=== PATIENT | female | born 1975 | race Caucasian/White ===

== ENCOUNTER 2017-01-07 18:52 | Emergency (ER) | payer OTHER ==
[~2017-01-07] VITALS: Ht 162.6 cm; Wt 94.5 kg
[~2017-01-07 18:52] MED LIST: PREN-64 PO
[2017-01-07 22:30] VITALS: BP 109/81
== END 2017-01-07 23:16 | disposition home or self-care (01) ==
LOC: EMS 18:54
DX: O26.893 Other specified pregnancy related conditions, third trimester (principal); R10.12 Left upper quadrant pain; Z3A.35 35 weeks gestation of pregnancy
CPT/HCPCS: 76805; 99284